=== PATIENT | male | born 1970 | race Caucasian/White ===

== ENCOUNTER 2018-11-17 04:30 | Emergency (ER) | payer OTHER ==
[~2018-11-17] VITALS: Ht 180.3 cm; Wt 127.0 kg
[2018-11-17] MEDS ORDERED: PERCOCET 7.5-31 EACH PO (05:21)
[2018-11-17] MEDS ORDERED: CLEOCIN HCL150 MG PO (05:21)
[2018-11-17 05:31] LABS: ABSOLUTE BASOPHILS 0.1 thou/uL (0.0-0.2); ABSOLUTE EOSINOPHILS 0.4 thou/uL (0.0-0.7); ABSOLUTE LYMPHOCYTES 1.9 thou/uL (0.8-5.3); ABSOLUTE MONOCYTES 0.6 thou/uL (0.0-1.2); ABSOLUTE NEUTROPHILS 4.8 thou/uL (1.6-8.1); EOSINOPHILS 5.6 %; HEMATOCRIT 43.2 % (42.0-52.0); HEMOGLOBIN 14.7 gm/dL (14.0-18.0); LYMPHOCYTES 24.2 %; MCHC 34.1 g/dL (28.0-37.0); MCV 102.8 fL (80.0-100.0); MONOCYTES 7.5 %; MPV 8.4 fl. (7.2-11.1); NUCLEATED RBCS 0 /100WBC; PLATELET COUNT* 196 thou/uL (150-400); POLYS 61.7 %; RDW-CV 14.2 % (10.5-14.5); WBC 7.8 thou/uL (4.0-11.0)
[2018-11-17 05:40] LABS: CALCIUM 8.5 mg/dL (8.5-10.1); CREATININE 1.1 mg/dL (0.6-1.3); POTASSIUM 3.5 mmol/L (3.5-5.1)
[2018-11-17 06:01] VITALS: BP 152/90
== END 2018-11-17 06:01 | disposition home or self-care (01) ==
LOC: M.ERS 04:30
PROVIDERS: Emergency Medicine
DX: L08.89 Other specified local infections of the skin and subcutaneous tissue (principal); F17.200 Nicotine dependence, unspecified, uncomplicated